=== PATIENT | female | born 1995 | race Caucasian/White ===

== ENCOUNTER 2019-05-02 00:47 | Emergency (ER) | payer OTHER ==
[~2019-05-02] VITALS: Ht 162.6 cm; Wt 127.0 kg
[2019-05-02 01:51] LABS: BASOPHILS % 0.3 % (0.0-1.0); EOSINOPHILS % 0.7 % (0.0-6.0); HEMATOCRIT 36.5 % (34.2-44.1); HEMOGLOBIN 11.8 g/dL (12.0-16.0); LYMPHOCYTES # (AUTO) 0.8 (1.0-3.2); MEAN CORPUSCULAR HEMOGLOBIN 26.2 pg (28-32); MEAN CORPUSCULAR HGB CONC 32.3 g/dL (31-35); MEAN CORPUSCULAR VOLUME 80.9 fL (81-99); MONOCYTES # (AUTO) 0.3 (0.2-0.8); MONOCYTES % 9.3 % (4.4-11.3); NEUTROPHILS # (AUTO) 1.8 (2.1-6.9); NEUTROPHILS % 60.7 % (38.7-80.0); PLATELET COUNT 112 x10e3/uL (140-360); RED BLOOD COUNT 4.51 x10e6/uL (3.6-5.1); RED CELL DISTRIBUTION WIDTH 14.9 % (11.7-14.4)
[2019-05-02 02:03] LABS: CLARITY,URINE CLOUDY (CLEAR); COLOR,URINE YELLOW (YELLOW); LEUKOCYTE ESTERASE ,URINE 1+ (NEGATIVE); NITRITE,URINE NEGATIVE (NEGATIVE)
[2019-05-02 02:04] LABS: BACTERIA,URINE MANY /HPF; BILIRUBIN,URINE NEGATIVE (NEGATIVE); KETONES,URINE NEGATIVE (NEGATIVE); PROTEIN,URINE DIPSTICK TRACE (NEGATIVE); RBC,URINE 21-50 /HPF (0-5); URINE UROBILINOGEN 0.2 mg/dL (0.2 - 1)
[2019-05-02 02:05] LABS: ALANINE AMINOTRANSFERASE 41 IU/L (0-55); ALBUMIN 3.9 g/dL (3.5-5.0); ALBUMIN/GLOBULIN RATIO 1.1 (0.8-2.0); ALKALINE PHOSPHATASE 49 IU/L (40-150); AMYLASE 29 U/L (25-125); ANION GAP 13.2 mmol/L (8-16); BLOOD UREA NITROGEN 7 mg/dL (7-26); BUN/CREATININE RATIO 9 (6-25); CALCIUM 9.7 mg/dL (8.4-10.2); CARBON DIOXIDE 26 mmol/L (22-29); CHLORIDE 103 mmol/L (98-107); CREATINE KINASE 40 IU/L (29-168); CREATININE, SERUM 0.78 mg/dL (0.57-1.11); EPITHELIAL CELLS,URINE FEW /LPF; EST GLOMERULAR FILTRATION RATE > 60 ML/MIN (60-); GLUCOSE 91 mg/dL (74-118); LIPASE 22 U/L (8-78); POTASSIUM 3.2 mmol/L (3.5-5.1); SODIUM 139 mmol/L (136-145); YEAST,URINE MANY
--- NOTE | 2019-05-02 02:39 | Diagnostic Imaging Report ---
Examination: Single AP view of the chest. COMPARISON: None. INDICATION: Chest pain IMPRESSION: 1. Lines and Tubes: None 2. Lungs are grossly clear. No consolidation or effusion. 3. Cardiomediastinal silhouette is normal. Pulmonary vasculature is normal. 4. No acute bony abnormalities. Signed by: Dr. Rafy Dudley M.D. on 05/02/2019 2:36 AM
[2019-05-02 03:00] VITALS: BP 123/85
--- OUTSIDE RECORDS SUMMARY | 2019-05-02 06:10 | XMS REPORT ---
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 Allergies, Adverse Reactions, Alerts This patient has no known allergies or adverse reactions. Medications This patient has no known medications. Results Test Description Test Time Test Comments Text Results Atomic Results Result Comments CHEST SINGLE (PORTABLE) 2019-05-02 02:35:00 [place] [address] Patient Name: BLANCA AGUILAR MR #: [id number] : 1995 Age/Sex: 23/F Req #: [id number] Adm Physician: Ordered by: DANIEL CORONADO MD Report #: [id number] Location: ER Room/Bed: Procedure: [id number] DX/CHEST SINGLE (PORTABLE) Exam Date: 05/02/19 Exam Time: 224 REPORT STATUS: Signed Examination: Single AP view of the chest. C OMPARISON: None. INDICATION: Chest pain IMPRESSION: 1. Lines and Tubes: None 2. Lungs are grossly clear. No consolidation or effusion. 3. Cardiomediastinal silhouette is normal. Pulmonary vasculature is normal. 4. No acute bony abnormalities. Signed by: Dr. Rahul Dudley M.D. on 05/02/2019 2:36 AM Dictated By: RAHUL DUDLEY MD 5 Transcribed By: TI on 05/02/19235 COPY TO: DANIEL CORONADO MD
--- OUTSIDE RECORDS SUMMARY | 2019-05-02 06:10 | XMS REPORT | Clinical Summary ---
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 06/08/2018 cyclobenzaprine Take 1 tablet 20 tablet 0 (FLEXERIL) 10 mg tablet (10 mg total) 8 by mouth 2 (two) times a day as needed for muscle spasms for up to 30 days. 06/08/2018 naproxen (NAPROSYN) 500 Take 1 tablet 60 tablet 0 MG tablet (500 mg 8 total) by mouth 2 (two) times a day with meals for 30 days. Active Problems Not on file Encounters Care Team Description Date Type Specialty Ramin Young MD Urinary tract infection without hematuria, site unspecified (Primary Dx); Sprain of low back, initial encounter 05/09/2018 Emergency Emergency Medicine after 05/01/2018 Social History Date Tobacco Use Types Packs/Day Years Used Never Smoker Smokeless Tobacco: Never Used Drinks/Week oz/Week Comments Alcohol Use occ Yes Sex Assigned at Date Recorded Not on file Industry Job Start Date Occupation Not on file Not on file Not on file Travel End Travel History Travel Start No recent travel history available. Last Filed Vital Signs Reading Time Taken Comments Vital Sign 118/65 05/09/2018 11:36 AM CDT Blood Pressure 80 05/09/2018 11:36 AM CDT Pulse 36.8 C (98.2 F) 05/09/2018 11:36 AM CDT Temperature 18 05/09/2018 11:36 AM CDT Respiratory Rate 99% 05/09/2018 11:36 AM CDT Oxygen Saturation - - Inhaled Oxygen Concentration - - Weight 162.6 cm (5' 4") 05/09/2018 10:50 AM CDT Height - - Body Mass Index Plan of Treatment Not on file Procedures Comments Procedure Name Priority Date/Time Associated Diagnosis URINALYSIS SCREEN AND Routine 05/09/2018 MICROSCOPY, WITH REFLEX 10:48 AM CDT TO CULTURE HCG QUALITATIVE, URINE Routine 05/09/2018 SCREEN 10:48 AM CDT GRAM STAIN Routine 05/09/2018 10:48 AM CDT URINE CULTURE Routine 05/09/2018 10:48 AM CDT after 05/01/2018 Results * Urinalysis screen and microscopy, with reflex to culture (05/09/2018 10:48 AM CDT) Specimen site Clean catch [facility] OF PATHOLOGY AND GENOMIC MEDICINE Color, UA Cookie [facility] OF PATHOLOGY AND GENOMIC MEDICINE Appearance, UA Slightly-Cloudy [facility] OF PATHOLOGY AND GENOMIC MEDICINE Specific 1.023 1.001 - 1.035 [facility] DE[facility] gravity, OF PATHOLOGY AND GENOMIC MEDICINE pH, UA 6.0 5.0 - 8.5 [facility] OF PATHOLOGY AND GENOMIC MEDICINE Protein, UA Negative Negative [facility] OF PATHOLOGY AND GENOMIC MEDICINE Glucose, UA Negative Negative [facility] OF PATHOLOGY AND GENOMIC MEDICINE Ketones, UA Negative Negative [facility] OF PATHOLOGY AND GENOMIC MEDICINE Bilirubin, UA Negative Negative [facility] OF PATHOLOGY AND GENOMIC MEDICINE Blood, UA Negative Negative [facility] OF PATHOLOGY AND GENOMIC MEDICINE Nitrite, UA Negative Negative [facility] OF PATHOLOGY AND GENOMIC MEDICINE Urobilinogen, 2.0 (A) <2.0 [facility] UA OF PATHOLOGY AND GENOMIC MEDICINE Leukocyte Large (A) Negative [facility] DEPART[facility] esterase, UA OF PATHOLOGY AND GENOMIC MEDICINE Epithelial Many /HPF [facility] cells, UA OF PATHOLOGY AND GENOMIC MEDICINE WBC, UA 59 (H) 0 - 5 /HPF [facility] OF PATHOLOGY AND GENOMIC MEDICINE RBC, UA 11 (H) 0 - 5 /HPF [facility] OF PATHOLOGY AND GENOMIC MEDICINE Bacteria, UA Trace None seen [facility] OF PATHOLOGY AND GENOMIC MEDICINE Yeast, UA None seen [facility] OF PATHOLOGY AND GENOMIC MEDICINE Yeast with None seen [facility] pseudohyphae, OF PATHOLOGY UA AND GENOMIC MEDICINE Specimen Urine Performing Organization Address City/State/Zipcode Phone Number [facility] DEPARTMENT OF [address] [place] [address] PATHOLOGY AND GENOMIC MEDICINE * hCG qualitative, urine screen (05/09/2018 10:48 AM CDT) hCG Negative Negative [facility] DEPARTMENT qualitative, Comment: OF PATHOLOGY urine The manufacturers stated AND GENOMIC sensitivity of HcG test for MEDICINE serum is >/=10 mIU/ml and urine is >/=20mIU/ml. Specimen Urine Performing Organization Address City/State/Zipcode Phone Number [facility] DEPARTMENT OF [address] [facility] [place] [address] PATHOLOGY AND GENOMIC MEDICINE * Gram stain (05/09/2018 10:48 AM CDT) Gram stain No WBC's [facility] DEPARTMENT result Occasional Gram negative rods OF PATHOLOGY Comment: AND GENOMIC Specimen Information MEDICINE Specimen Source: Urine Specimen Site: Clean catch Specimen Urine Performing Organization Address City/State/Zipcode Phone Number [facility] DEPARTMENT OF [address] [place] [address] PATHOLOGY AND GENOMIC MEDICINE * Urine culture (05/09/2018 10:48 AM CDT) Urine culture Escherichia coli [facility] DEPARTMENT isolate 10-4 cfu/ml OF PATHOLOGY (A) AND GENOMIC Comment: MEDICINE Specimen Information Specimen Source: Urine Specimen Site: Clean catch Specimen Urine Antibiotic Method Susceptibility Organism Ampicillin MATEUSZ >16 mcg/mL: Resistant Escherichia coli Amoxicillin/Clavulanate MATEUSZ 8/4 mcg/mL: Susceptible Escherichia coli Amikacin MATEUSZ <=4 mcg/mL: Susceptible Escherichia coli Aztreonam MATEUSZ <=1 mcg/mL: Susceptible Escherichia coli Ceftazidime MATEUSZ <=0.5 mcg/mL: Susceptible Escherichia coli Ciprofloxacin MATEUSZ <=0.5 mcg/mL: Susceptible Escherichia coli Ceftriaxone MATEUSZ <=0.5 mcg/mL: Susceptible Escherichia coli Cefuroxime Sodium MATEUSZ <=4 mcg/mL: Susceptible Escherichia coli Cefazolin MATEUSZ 4 mcg/mL: Resistant Escherichia coli Cefepime MATEUSZ <=0.5 mcg/mL: Susceptible Escherichia coli Nitrofurantoin MATEUSZ <=16 mcg/mL: Susceptible Escherichia coli Cefoxitin MATEUSZ <=4 mcg/mL: Susceptible Escherichia coli Gentamicin MATEUSZ >8 mcg/mL: Resistant Escherichia coli Imipenem MATEUSZ <=0.25 mcg/mL: Susceptible Escherichia coli Levofloxacin MATEUSZ <=1 mcg/mL: Susceptible Escherichia coli Meropenem MATEUSZ <=0.125 mcg/mL: Susceptible Escherichia coli Tobramycin MATEUSZ 8 mcg/mL: Resistant Escherichia coli Ampicillin/Sulbactam MATEUSZ 16/8 mcg/mL: Resistant Escherichia coli Trimethoprim/Sulfamethoxazole MATEUSZ <=0.5/9.5 mcg/mL: Susceptible Escherichia coli Tetracycline MATEUSZ <=1 mcg/mL: Susceptible Escherichia coli Piperacillin/Tazobactam MATEUSZ <=2/4 mcg/mL: Susceptible Escherichia coli Ertapenem MATEUSZ <=0.125 mcg/mL: Susceptible Escherichia coli Tigecycline MATEUSZ <=0.5 mcg/mL: Susceptible Escherichia coli Performing Organization Address City/State/Zipcode Phone Number [facility] [address] [place] [id number] PATHOLOGY AND GENOMIC MEDICINE after 05/01/2018 Insurance Type Payer Benefit Subscriber ID Effective Phone Address Plan / Dates Group Commercial AET[employer] [place] [place] xxxxxxxxxx [id number] [facility] [address] [place] [address] Advance Directives For more information, please contact: [phone] 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
== END 2019-05-02 03:25 | disposition home or self-care (01) ==
LOC: ER 00:47
DX: M94.0 Chondrocostal junction syndrome [Tietze] (principal); E87.6 Hypokalemia; R10.11 Right upper quadrant pain; K52.9 Noninfective gastroenteritis and colitis, unspecified; N30.91 Cystitis, unspecified with hematuria; Z87.891 Personal history of nicotine dependence
CPT/HCPCS: 36415; 71045; 80053; 81001; 82150; 82550; 82553; 83690; 84484; 84702; 85025; 87086; 93005; 99283